=== PATIENT | female | born 1930 | race Caucasian/White ===

== ENCOUNTER 2018-01-13 10:57 | Emergency (ER) | payer MEDICARE, OTHER | END 2018-01-13 13:30 | disposition home or self-care (01) | LOC: E/R 13:30 | DX: S50.11XA Contusion of right forearm, initial encounter (principal); S63.501A Unspecified sprain of right wrist, initial encounter; I10 Essential (primary) hypertension; W01.0XXA Fall on same level from slipping, tripping and stumbling without subsequent striking against object, initial encounter; Y92.9 Unspecified place or not applicable | CPT/HCPCS: 73090; 73090-RT; 73110-RT; 99283-25 ==